=== PATIENT | female | born 1995 | race Caucasian/White ===

== ENCOUNTER 2018-12-30 18:25 | Outpatient (CLI) | payer OTHER ==
[~2018-12-30] VITALS: Ht 160 cm; Wt 84.8 kg
--- NOTE | 2018-12-30 18:35 | NUR ---
Arrived to unit ambulates self with c/o "left flank/lower back pain that radiates down left buttocks to left hamstring". pt reports haivng constant pain since 0800 this am when it started at work. Wt obtained and to room 315. urine sample obtained. To bed and oriented to call light and surroundings. plan of care reviewed with pt and s.o. at bedside.
--- NOTE | 2018-12-30 19:16 | NUR ---
Dr Andujar notified of pt arrival, gestation, c/o, hx, assessment, urine dipstick, fht dopplered 148. New orders received.
[2018-12-30] MEDS ORDERED: NITR-65 PO (19:23)
--- NOTE | 2018-12-30 19:35 | NUR ---
D/C instructions given & explained, including new Rx of Macrobid called to [facility] & questions answered, pt. verbalized understanding. Copy of D/C instructions to pt. Pt. left [facility] ambulatory escorted by SO, to home via private vehicle.
== END 2018-12-30 19:35 | disposition home or self-care (01) ==
LOC: LDRP 18:25 → WSo 18:25
PROVIDERS: ATTEND Family Medicine
DX: O99.89 Other specified diseases and conditions complicating pregnancy, childbirth and the puerperium (principal); R10.9 Unspecified abdominal pain; Z3A.23 23 weeks gestation of pregnancy
CPT/HCPCS: 99213

== ENCOUNTER → 2019-01-14 | Outpatient (CLI) | payer OTHER ==
[~2019-01-14] MED LIST: NITR-65 PO
--- NOTE | 2019-01-14 16:56 | Diagnostic Imaging Report ---
PROCEDURE: MR imaging of the brain without contrast. TECHNIQUE: Multiplanar, multisequence MR imaging of the brain was performed without contrast. INDICATION: Headaches. History of cavernous hemangioma. 24 week gestation. COMPARISON: None available. FINDINGS: 1.0 x 1.0 cm T1 and T2 hyperintense mass in the left postcentral gyrus demonstrating hemosiderin staining with no associated adjacent vasogenic edema. There is a second 0.4 x 0.4 cm T1 and T2 hyperintense lesion with a larger degree of hemosiderin staining in the inferior left frontal lobe adjacent to the frontal horn of the left lateral ventricle. This lesion also has no associated vasogenic edema. There are two punctate foci of hemosiderin deposition in the right frontal lobe. Single punctate focus of hemosiderin staining in the left parietal lobe. Normal morphology of the major midline structures, sella, posterior fossa and cerebellar pontine angle. No hydrocephalus or extra-axial fluid collections. Normal intracranial flow voids. The orbits are unremarkable. The paranasal sinuses and mastoids are clear. Normal bone marrow signal. IMPRESSION: Multiple intracranial lesions consistent with cavernous hemangiomas. The largest of these is in the left postcentral gyrus and measures up to 1.0 cm. No MRI findings to suggest recent hemorrhage. No vasogenic edema. No acute intracranial MRI findings. Dictated by: Dictated on workstation # [id number]
== END ==
LOC: RAD 15:33
PROVIDERS: ATTEND Family Medicine
DX: D18.02 Hemangioma of intracranial structures (principal); G93.89 Other specified disorders of brain
CPT/HCPCS: 70551

== ENCOUNTER 2019-01-27 18:23 | Emergency (ER) | payer OTHER ==
[~2019-01-27] VITALS: Ht 152.4 cm; Wt 81.6 kg
--- NOTE | 2019-01-27 20:01 | ED Integumentary General ---
General Chief Complaint: Bite-Animal/Human/Insect Stated Complaint: RT HAND ANIMAL BITE Nursing Triage Note: Patient c/o redness and swelling on her left hand from a cat bite. Patient reports that she was bite by the cat at the [facility] yesterday around 9am. She thought it would get better but the swelling and redness became worse. She presented to urgent care and was sent to the ED for further evaluation. Source: patient History of Present Illness Date Seen by Provider: Jan 27, 2019 Time Seen by Provider: 20:00 Initial Comments 23 yo female presenting with complaints of a cat bite to her hand that happened yesterday morning at 9 AM. She was helping at the [facility] and got bitten when they were trying to spay the cat. They are able to monitor the cat. She has pain and redness with swelling in the finger at the site of the bite and it is near her hemangioma on her hand. She is 27 weeks . She has not had any complications with her . She does have a hemangioma in her brain and is scheduled to see a neurologist about that. She has had no fever or chills. She h as no drainage from the wound. She does have some redness and swelling at the site of the bites. She has decreased movement of the ring finger where she has the bites. Allergies and Home Medications Allergies Coded Allergies: No Known Drug Allergies (Unverified , 12/30/18) Home Medications Amoxicillin/Potassium Clav 1 Each Tablet, 1 EACH PO BID Prescribed by: ESTHER GILLESPIE on 01/27/192015 Nitrofurantoin Monohyd/M-Cryst 100 Mg Capsule, 1 TAB PO BID Prescribed by: ABBY SCHILLING on 12/30/181922 Patient Home Medication List Home Medication List Reviewed: Yes Review of Systems Review of Systems Constitutional: No chills, No fever EENTM: no symptoms reported Respiratory: no symptoms reported Cardiovascular: no symptoms reported Gastrointestinal: no symptoms reported Genitourinary: no symptoms reported Musculoskeletal: see HPI Skin: see HPI Past Slhlfjk-Fqusts-Refadk Hx Past Med/Social Hx: Reviewed Nursing Past Med/Soc Hx Patient Social History Alcohol Use: Denies Use Recreational Drug Use: No Smoking Status: Never a Smoker 2nd Hand Smoke Exposure: No Recent Foreign Travel: No Contact w/Someone Who Travel: No Recent Infectious Disease Expo: No Recent Hopitalizations: No Physical Abuse: No Sexual Abuse: No Mistreated: No Fear: No Seasonal Allergies Seasonal Allergies: No Past Medical History Surgeries: Yes (Right hand surgery, left ankle surgery) Orthopedic Respiratory: No Cardiac: No Neurological: Yes (Hemangioma on brain) : Yes (27 weeks ) Hx : 1 Genitourinary: No Gastrointestinal: No Musculoskeletal: No Endocrine: No HEENT: No Cancer: No Psychosocial: No Blood Disorders: No Physical Exam Vital Signs Vital Signs - First Documented 01/27/19 18:35 Temp 98.5 Pulse 89 Resp 16 B/P (MAP) 118/71 (87) Pulse Ox 100 O2 Delivery Room Air Capillary Refill : Less Than 3 Seconds General Appearance: WD/WN, no apparent distress HEENT: normal ENT inspection, pharynx normal Neck: non-tender, full range of motion, supple, normal inspection Cardiovascular: normal peripheral pulses, regular rate, rhythm Extremities: normal capillary refill, swelling (with erythema at site of the bites with tenderness on the ring finger. She does have a hemangioma just next to the site of bites) Neurologic/Psychiatric: mathematical scientist II-XII nml as tested, no motor/sensory deficits, alert, normal mood/affect, oriented x 3 Skin: warm/dry, other (multiple scratches on her arms and hands as well as redness with induration, swelling and tenderness to left ring finger at site of bites, next to a hemangioma on the hand. No streaking from site of cat bite. no drainage. ) Progress/Results/Core Measures Results/Orders My Orders Orders - ESTHER GILLESPIE MD Ceftriaxone For Im Use (Rocephin For Im (01/27/19 20:08) Amoxicillin/Clavulanate Tablet (Augmenti (01/27/19 20:08) Lidocaine 1% Inj 20 Ml (Xylocaine 1% Inj (01/27/19 20:08) Vital Signs/I&O 01/27/19 01/27/19 18:35 20:25 Temp 98.5 98.5 Pulse 89 89 Resp 16 16 B/P (MAP) 118/71 (87) 118/71 (87) Pulse Ox 100 100 O2 Delivery Room Air Blood Pressure Mean: 87 Progress Progress Note : Progress Note With the cat bite already looking like it has some infection will give Rocephin shot tonight. Start her on Augmentin for the Bite. Counseled to follow up with clinic and take antibiotics as scheduled. Counseled on follow-up and return precautions. Departure Impression Primary Impression: Cat bite of multiple sites of left hand and fingers with infection Qualified Codes: S61.452A - Open bite of left hand, initial encounter; S61.259A - Open bite of unspecified finger without damage to nail, initial encounter; L08.9 - Local infection of the skin and subcutaneous tissue, unspecified; W55.01XA - Bitten by cat, initial encounter Additional Impression: Incidental confirmed Disposition: HOME, SELF-CARE Condition: Stable Departure-Patient Inst. Decision time for Depature: 20:13 Referrals: ONOFRE SAN MD (PCP/Family) Primary Care Physician Patient Instructions: Animal Bites (DC), CAT BITE, Cellulitis (Skin Infection), Adult (DC) Add. Discharge Instructions: Take antibiotics until gone. Follow-up with the clinic for monitoring and make sure that the infection is improving with the antibiotics. If you are seeing redness and swelling that is streaking up your hand and arm or running fevers over 101 Fahrenheit then you will need to be seen at a hospital where you can be admitted for IV antibiotics as the infection was spreading and not responding to just the oral antibiotics. All discharge instructions reviewed with patient and/or family. Voiced understanding. Scripts Amoxicillin/Potassium Clav (Augmentin 875-125 Tablet) 1 Each Tablet 1 EACH PO BID for cat bite for 10 Days, #20 TAB 0 Refills Prov: ESTHER GILLESPIE MD 01/27/19 ESTHER GILLESPIE MD Jan 27, 2019 20:01
[2019-01-27] MEDS ORDERED: AUGMENTIN 875 MG TAB (AMOXICILLIN/CLAVULANATE) PO STA (20:08)
[2019-01-27] MEDS ORDERED: LIDOCAINE 1% INJ 20 ML 20 ML VIAL INJ STA (20:08)
[2019-01-27] MEDS ORDERED: cefTRIAXone 1,000 MG/2.86 ml vial (IM ONLY) IM STA (20:08)
[2019-01-27] MEDS ORDERED: AMOX-358 PO (20:16)
[2019-01-27 20:25] VITALS: BP 118/71
== END 2019-01-27 20:24 | disposition home or self-care (01) ==
LOC: EDUNIT# 18:23 → ER FS 18:25
DX: O9A.212 Injury, poisoning and certain other consequences of external causes complicating pregnancy, second trimester (principal); S61.452A Open bite of left hand, initial encounter; S61.255A Open bite of left ring finger without damage to nail, initial encounter; L08.9 Local infection of the skin and subcutaneous tissue, unspecified; Z3A.27 27 weeks gestation of pregnancy
CPT/HCPCS: 96372; 99284

== ENCOUNTER 2019-04-10 21:42 | Outpatient (CLI) | payer OTHER ==
[~2019-04-10] VITALS: Ht 157 cm; Wt 93.3 kg
[~2019-04-10 21:42] MED LIST changes: +AMOX-358 PO
--- NOTE | 2019-04-10 21:50 | NUR ---
ZEKE NEAL presented to unit via AMBULATORY from ED, accompanied by S/O, with c/o CONTRACTIONS 36.5WEEKS GEST. ZEKE NEAL weighed, gowned, voided, and to bed. EFHM and TOCO applied, VS taken. ZEKE NEAL oriented to bed controls, call light, TV, heat, and A/C controls.
[2019-04-10 22:03] LABS: BILIRUBIN,URINE NEGATIVE (NEGATIVE); CLARITY,URINE CLOUDY; GLUCOSE, URINE (UA) NEGATIVE (NEGATIVE); KETONES,URINE NEGATIVE (NEGATIVE); LEUKOCYTE ESTERASE ,URINE NEGATIVE (NEGATIVE); NITRITE,URINE NEGATIVE (NEGATIVE); PH,URINE 5.5 (5-9); PROTEIN,URINE NEGATIVE (NEGATIVE)
[2019-04-10 22:08] VITALS: BP 135/64
[2019-04-10 22:08] LABS: COLOR,URINE YELLOW
[2019-04-10 22:09] LABS: BACTERIA,URINE MODERATE /HPF
--- NOTE | 2019-04-10 22:50 | NUR ---
notified of pt's arrival and complaint, tracing and u/a results reported. new orders received.
[2019-04-10] MEDS ORDERED: cefTRIAXone 1,000 MG/2.86 ml vial (IM ONLY) ONE (22:59)
[2019-04-10] MEDS ORDERED: LIDOCAINE 1% INJ 20 ML 20 ML VIAL ONE (22:59)
[2019-04-10] MEDS ORDERED: LIDOCAINE 1% INJ 20 ML 20 ML VIAL INJ ONE (23:00)
--- NOTE | 2019-04-10 23:21 | NUR ---
Discharge instructions verbalized with pt. pt dc'd home with labor precautions. Will follow up in clinic
[2019-04-11] MEDS ORDERED: cefTRIAXone 1,000 MG/2.86 ml vial (IM ONLY) IM SCH (09:00)
--- NOTE | 2019-04-12 08:40 | Physician Query-Final Dx ---
PADMINI OLIVEIRA 04/12/19 0840: Clinic Account Progress/Dx Physician Query: Please give diagnosis Please include # weeks gestation Date of Service Apr 10, 2019 at 21:42 MEME HILL MD 04/14/19 0818: Clinic Account Progress/Dx DIAGNOSIS: Diagnosis 1. IUP at 36 weeks 2. Uterine irritability, non-labor PADMINI OLIVEIRA Apr 12, 2019 08:40 MEME SINGH MD Apr 14, 2019 08:18 POS
== END 2019-04-10 23:21 | disposition home or self-care (01) ==
LOC: WSo 21:42 → LDRP 21:42 → WSo 23:21
PROVIDERS: ATTEND Family Medicine
DX: O62.9 Abnormality of forces of labor, unspecified (principal); Z3A.37 37 weeks gestation of pregnancy
CPT/HCPCS: 81000; 87088; 96372; 99213

== ENCOUNTER 2019-04-25 20:39 | Outpatient (CLI) | payer OTHER, MEDICAID ==
[~2019-04-25] VITALS: Ht 152.4 cm; Wt 93.7 kg
--- NOTE | 2019-04-25 20:45 | NUR ---
ZEKE NEAL presented to unit via ambulation from ED, accompanied by SO, with c/o CONTRACTIONS. ZEKE NEAL weighed, gowned, voided, and to bed. EFHM and TOCO applied, VS taken. ZEKE NEAL oriented to bed controls, call light, TV, heat, and A/C controls.
[2019-04-25 21:02] VITALS: BP 132/78
--- NOTE | 2019-04-25 22:10 | NUR ---
D/C instructions given & explained per Nghia Gant, RN, pt. verbalized understanding & signed @ [id number], copy of D/C instructions to pt. Pt. left [facility] ambulatory escorted by SO, to home via private vehicle.
--- NOTE | 2019-04-26 08:06 | Physician Query-Final Dx ---
Clinic Account Progress/Dx Physician Query: Please give diagnosis Please include # weeks gestation Date of Service Apr 25, 2019 at 20:39 PADMINI OLIVEIRA Apr 26, 2019 08:06 POS
== END 2019-04-25 22:10 | disposition home or self-care (01) ==
LOC: WSo 20:39 → LDRP 20:40 → WSo 22:10
PROVIDERS: ATTEND Family Medicine
DX: O62.9 Abnormality of forces of labor, unspecified (principal); Z3A.38 38 weeks gestation of pregnancy

== ENCOUNTER 2019-04-26 17:37 | Inpatient (IN) | payer OTHER, MEDICAID ==
[2019-04-26] VITALS (15 sets, daily range): BP systolic 119–150; BP diastolic 58–92
[~2019-04-26] VITALS: Ht 152.4 cm; Wt 92.6 kg
--- NOTE | 2019-04-26 17:45 | NUR ---
ZEKE NEAL presented to unit via ambulatory from ED, accompanied by Robb , with c/o contractions and here for scheduled INDUCTION. ZEKE NEAL weighed, gowned, voided, and to bed. EFHM and TOCO applied, VS taken. ZEKE NEAL oriented to bed controls, call light, TV, heat, and A/C controls.
[2019-04-26] MEDS ORDERED: MINERAL OIL CONCENTRATE 99.9% 15 ML UDC TOP PRN (18:15)
[2019-04-26] MEDS ORDERED: D5 LR IV SOLUTION 1,000 ML IV ONE (18:18)
[2019-04-26] MEDS: D5 LR IV SOLUTION 1,000 ML IV SCH (18:34)
[2019-04-26 18:49] LABS: BASOPHILS % (AUTO) 0 % (0-10); EOSINOPHILS # (AUTO) 0.1 10^3/uL (0.0-0.3); EOSINOPHILS % (AUTO) 1 % (0-10); HEMATOCRIT 34 % (35-52); HEMOGLOBIN 11.2 G/DL (11.5-16.0); LYMPHOCYTES # (AUTO) 1.9 X 10^3 (1.0-4.0); LYMPHOCYTES % (AUTO) 10 % (12-44); MEAN CORPUSCULAR HEMOGLOBIN 28 PG (25-34); MEAN CORPUSCULAR HGB CONC 33 G/DL (32-36); MEAN CORPUSCULAR VOLUME 86 FL (80-99); MEAN PLATELET VOLUME 7.8 FL (7.4-10.4); MONOCYTES # (AUTO) 1.1 X 10^3 (0.0-1.0); MONOCYTES % (AUTO) 6 % (0-12); NEUTROPHILS # (AUTO) 15.6 X 10^3 (1.8-7.8); NEUTROPHILS % (AUTO) 84 % (42-75); PLATELET COUNT 262 10^3/uL (130-400); RED CELL DISTRIBUTION WIDTH 13.6 % (10.0-14.5); WHITE BLOOD COUNT 18.7 10^3/uL (4.3-11.0)
--- NOTE | 2019-04-26 18:51 | NUR ---
Dr Ellis called from this nurse to discuss pt admission and plan of care for induction. Informed physician pt was 2cms and thick. Contractions q 4 minutes apart since noon. Rates contractions an 8. Physician opted for no Cytotec at this time and for Pitocin induction at 0500.
[2019-04-26 19:29] LABS: BAND NEUTROPHILS 3 %; LYMPHOCYTES % (MANUAL) 8 %; MONOCYTES % (MANUAL) 7 %; NEUTROPHILS % (MANUAL) 82 %; RBC MORPH N
[2019-04-26] MEDS ORDERED: BUPIVACAINE 0.25% 30 ML (SENSORCAINE) VIAL ONE ×2 (21:15→22:08)
[2019-04-26] MEDS ORDERED: fentaNYL INJECTION 100 MCG/2 ML AMP ONE ×2 (21:15→22:09)
[2019-04-26] MEDS ORDERED: LIDOCAINE PF 2% 5 ML (XYLOCAINE) VIAL ONE ×2 (21:15→22:08)
[2019-04-26] MEDS ORDERED: SUFENTA 0.6MCG/ML BUPIVA 0.125 100 ML ONE (21:29)
[2019-04-26] MEDS ORDERED: CATHETER FLUSH 10 ML SYR IV SCH (22:00)
[2019-04-26] MEDS ORDERED: LACTATED RINGERS 1,000 ML IV SCH (22:07)
[2019-04-26] MEDS ORDERED: ONDANSETRON 4 MG/2 ML (SDV) Z0FRAN IV PRN (22:15)
[2019-04-26] MEDS ORDERED: NALOXONE 0.4 MG/ML 1 ML (NARCAN) VIAL IV PRN (22:15)
[2019-04-26] MEDS ORDERED: diphenhydrAMINE 50 MG/ML INJ (BENADRYL) IV PRN (22:15)
[2019-04-26] MEDS: EPIDURAL (SUFENTA 0.6MCG/ML BUPIVA 0.125%) 100 ML BAG EPI PRN (22:32)
[2019-04-27] VITALS (98 sets, daily range): BP systolic 87–193; BP diastolic 46–169
[2019-04-27] MEDS: D5 LR IV SOLUTION 1,000 ML IV SCH ×2 (02:03→09:26)
[2019-04-27] MEDS ORDERED: OXYTOCIN/NORMAL SALINE 500 ML IV SCH ×2 (05:00→15:28)
[2019-04-27] MEDS: EPIDURAL (SUFENTA 0.6MCG/ML BUPIVA 0.125%) 100 ML BAG EPI PRN ×2 (06:06→13:12)
[2019-04-27] MEDS ORDERED: LIDOCAINE 1% INJ 20 ML 20 ML VIAL ONE (14:20)
--- NOTE | 2019-04-27 15:26 | History & Physical-OB ---
OB - Chief Complaint & HPI Date/Time Date of Admission: Date of Admission: Apr 26, 2019 at 17:37 Date seen by a Provider: Apr 27, 2019 Time Seen by a Provider: 14:00 Chief Complaint/History OB-Reason for Admission/Chief: Onset of Labor Hx : 1 Hx Para: 0 Gestational Age in Weeks: 39 Gestational Age in Days: 4 Indication for induction: maternal discomfort Admission Nurse Assessment Rev: Yes Allergies and Home Medications Allergies Coded Allergies: No Known Drug Allergies (Unverified , 12/30/18) Home Medications No Active Prescriptions or Reported Meds Patient Home Medication List Home Medication List Reviewed: Yes OB - History Hx of Present Ultrasounds: Normal mid trimester US Obstetrical Complications: None 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) Patient Past Medical History previously healthy Social History/Family History Recent Infectious Disease Expo: Yes Alcohol Use: Denies Use Recreational Drug Use: No 2nd Hand Smoke Exposure: No Immunizations Date of Influenza Vaccine: Mar 09, 2019 OB - Admission Exam Physical Exam Vitals: Vital Signs 04/27/19 04/27/19 00:08 12:26 Temp 37.1 Pulse 103 Resp 18 B/P (MAP) 130/65 (86) Pulse Ox 95 O2 Delivery Room Air HEENT: NCAT Heart: Rhythm Normal Lungs: Clear Abdomen: Gravid Extremities: Normal Reflexes: Normal Cervical Dilatation: 10cm Effacement: 100% Station: -1 Membranes: Ruptured Amniotic Fluid: Clear Heart Rate: 140's Accelerations: Accelerations Present Decelerations: No Decelerations Short Term Variability: Present Leather Lacer Variability: Average (6-25) Contractions on Admission: < 5 Minutes Apart Labs Laboratory Tests Test 04/26/19 18:30 Range/Units White Blood Count 18.7 H 4.3-11.0 10^3/uL Red Blood Count 4.02 L 4.35-5.85 10^6/uL Hemoglobin 11.2 L 11.5-16.0 G/DL Hematocrit 34 L 35-52 % Mean Corpuscular Volume 86 80-99 FL Mean Corpuscular Hemoglobin 28 25-34 PG Mean Corpuscular Hemoglobin Concent 33 32-36 G/DL Red Cell Distribution Width 13.6 10.0-14.5 % Platelet Count 262 130-400 10^3/uL Mean Platelet Volume 7.8 7.4-10.4 FL Neutrophils (%) (Auto) 84 H 42-75 % Lymphocytes (%) (Auto) 10 L 12-44 % Monocytes (%) (Auto) 6 0-12 % Eosinophils (%) (Auto) 1 0-10 % Basophils (%) (Auto) 0 0-10 % Neutrophils # (Auto) 15.6 H 1.8-7.8 X 10^3 Lymphocytes # (Auto) 1.9 1.0-4.0 X 10^3 Monocytes # (Auto) 1.1 H 0.0-1.0 X 10^3 Eosinophils # (Auto) 0.1 0.0-0.3 10^3/uL Basophils # (Auto) 0.0 0.0-0.1 10^3/uL Neutrophils % (Manual) 82 % Lymphocytes % (Manual) 8 % Monocytes % (Manual) 7 % Band Neutrophils 3 % Blood Morphology Comment N OB - Assessment/Plan/Diagnosis Assessment Assessment: active labor Admission Dx Inpatient labor Admission Status: Inpatient Order (span 2 midnights) Reason for Inpatient Admission: Labor at 39 4/7 wga Plan Plan: Expectant Management Induction Method: per Pitocin Protocol ONFORE SAN MD Apr 27, 2019 15:26 POS
--- NOTE | 2019-04-27 15:28 | OB Labor & Delivery Record ---
Vag Delivery Note Vag Delivery Note Date of Delivery: 04/27/19 Preoperative Diagnosis: Serena Rogers is a (24 /Para 1 / 0, Gestational Age (wks)39with [4 days] Postoperative Diagnosis: Same Surgeon: ONOFRE SAN Global Director Air And Climate Change: [none] Anesthesia: [epidural] Delivery Type: [] Findings: [male] Viable [male] , apgars [8/9], weight [7 pounds 6 ounces] Lacerations: Intact placenta with 3 vessel cord. No nuchal cord, body cord or shoulder dystocia Estimated Blood Loss: [350] ml Complications: None Condition: Stable Description of Procedure: The patient is a 24 year old female who presented [in early labor]. She was admitted and informed consent was obtained. Her labor course was remarkable for [augmentation of labor] She progressed to complete dilatation and began to push. She was then set up for delivery. The infant's head was delivered atraumatically in the [OA] position. The shoulders and remainder of the 's body were then delivered without difficulty. Upon delivery, the head was held below the level of the perineum and the mouth and nares were bulb suctioned. The cord was doubly clamped after 60 seconds on maternal abdomen. An intact placenta with 3-vessel cord delivered via Susan and there was found to be minimal bleeding.~ Vigorous fundal massage was performed and the fundus was found to be firm. IV oxytocin was given. Examination of the vagina and perineum revealed [no] lacerations. Following the repair, sponge, instrument and needle counts were correct. Mom and baby were both in stable condition in the labor suite. Vitals - Labs Vital Signs - I&O Vital Signs Date Time Temp Pulse Resp B/P (MAP) Pulse Ox O2 Delivery O2 Flow Rate FiO2 04/27/19 12:26 37.1 103 18 130/65 (86) Room Air 04/27/19 12:11 102 18 142/60 (87) Room Air 04/27/19 11:56 113 18 131/67 (88) Room Air 04/27/19 11:41 111 18 130/64 (86) Room Air 04/27/19 11:26 113 18 126/61 (82) Room Air 04/27/19 10:40 36.8 97 18 134/64 (87) Room Air 04/27/19 10:37 92 18 135/62 (86) Room Air 04/27/19 10:34 93 18 134/60 (84) Room Air 04/27/19 10:31 104 18 133/63 (86) Room Air 04/27/19 10:28 90 18 127/62 (83) Room Air 04/27/19 10:18 92 18 128/60 (82) Room Air 04/27/19 10:15 89 18 131/62 (85) Room Air 04/27/19 10:12 87 18 125/58 (80) Room Air 04/27/19 10:09 99 18 123/57 (79) Room Air 04/27/19 10:06 90 18 110/56 (74) Room Air 04/27/19 10:03 90 18 122/59 (80) Room Air 04/27/19 10:00 91 18 120/58 (78) Room Air 04/27/19 09:56 84 18 124/57 (79) Room Air 04/27/19 09:53 93 18 130/61 (84) Room Air 04/27/19 09:50 88 18 130/62 (84) Room Air 04/27/19 09:47 96 18 123/59 (80) Room Air 04/27/19 09:37 88 18 126/61 (82) Room Air 04/27/19 09:22 78 18 122/55 (77) Room Air 04/27/19 09:08 80 18 132/61 (84) Room Air 04/27/19 08:58 36.8 04/27/19 08:54 96 18 130/61 (84) Room Air 04/27/19 08:39 89 18 105/54 (71) Room Air 04/27/19 08:21 80 18 104/49 (67) Room Air 04/27/19 08:17 95 18 109/51 (70) Room Air 04/27/19 08:14 80 18 103/46 (65) Room Air 04/27/19 08:12 83 18 104/51 (68) Room Air 04/27/19 08:09 95 18 105/51 (69) Room Air 04/27/19 08:06 79 18 106/49 (68) Room Air 04/27/19 08:03 91 18 108/52 (70) Room Air 04/27/19 08:00 100 18 112/53 (72) Room Air 04/27/19 07:58 80 18 107/50 (69) Room Air 04/27/19 07:54 92 18 113/51 (71) Room Air 04/27/19 07:51 96 18 87/50 (62) Room Air 04/27/19 07:48 100 18 130/65 (86) Room Air 04/27/19 07:45 107 18 131/69 (89) Room Air 04/27/19 07:42 96 18 122/63 (82) Room Air 04/27/19 07:39 100 18 123/59 (80) Room Air 04/27/19 07:36 96 18 129/58 (81) Room Air 04/27/19 07:33 94 18 132/62 (85) Room Air 04/27/19 07:30 37.2 99 18 129/60 (83) Room Air 04/27/19 07:22 103 18 128/60 (82) Room Air 04/27/19 07:08 96 18 128/58 (81) Room Air 04/27/19 06:55 100 18 133/78 (96) Room Air 04/27/19 06:40 97 18 132/79 (96) Room Air 04/27/19 06:25 96 18 127/64 (85) Room Air 04/27/19 06:10 36.5 80 18 121/56 (77) Room Air 04/27/19 05:55 76 18 113/57 (75) Room Air 04/27/19 05:37 62 18 111/57 (75) Room Air 04/27/19 05:22 62 18 111/55 (73) Room Air 04/27/19 05:07 75 18 114/55 (74) Room Air 04/27/19 04:52 85 18 123/59 (80) Room Air 04/27/19 04:38 36.6 63 18 111/51 (71) Room Air 04/27/19 04:22 77 18 106/51 (69) Room Air 04/27/19 04:07 72 18 101/52 (68) Room Air 04/27/19 03:53 78 18 117/56 (76) Room Air 04/27/19 03:37 80 18 107/58 (74) Room Air 04/27/19 03:22 78 18 120/58 (78) Room Air 04/27/19 03:07 88 18 120/60 (80) Room Air 04/27/19 02:52 36.2 96 18 113/56 (75) Room Air 04/27/19 02:38 85 18 117/59 (78) Room Air 04/27/19 02:22 103 18 109/58 (75) Room Air 04/27/19 02:08 92 18 113/58 (76) Room Air 04/27/19 01:52 65 18 106/53 (70) Room Air 04/27/19 01:38 55 18 110/52 (71) Room Air 04/27/19 01:22 94 18 114/55 (74) Room Air 04/27/19 01:08 57 18 110/54 (72) Room Air 04/27/19 00:52 96 18 110/57 (74) Room Air 04/27/19 00:38 78 18 113/59 (77) Room Air 04/27/19 00:08 87 18 120/57 (78) 95 Room Air 04/27/19 00:00 36.1 97 18 120/57 (78) 95 Room Air 04/26/19 23:38 96 18 119/58 (78) 95 Room Air 04/26/19 23:19 91 18 127/59 (81) 95 Room Air 04/26/19 23:12 99 16 137/64 (88) 96 Room Air 04/26/19 22:58 89 18 95 04/26/19 22:45 96 16 135/63 (87) 90 Room Air 04/26/19 22:40 106 16 130/59 (82) 96 Room Air 04/26/19 22:36 106 16 127/58 (81) 96 Room Air 04/26/19 22:33 104 16 121/58 (79) 96 Room Air 04/26/19 22:30 103 16 135/73 (93) 97 Room Air 04/26/19 22:25 95 16 141/92 (108) 97 Room Air 04/26/19 22:22 100 16 150/67 (94) 97 Room Air 04/26/19 22:19 100 16 142/70 (94) 98 Room Air 04/26/19 22:16 100 16 143/74 (97) 98 Room Air 04/26/19 22:13 36.7 105 18 143/75 (97) 99 Room Air 04/26/19 21:05 97 16 130/75 (93) 96 Room Air 04/26/19 18:00 37.3 102 16 96 Room Air 04/26/19 18:00 37.3 104 16 130/74 (92) 96 Room Air I & O 04/27/19 07:00 Intake Total 2000 ml Balance 2000 ml Labs Laboratory Tests 04/26/19 18:30: White Blood Count 18.7H, Red Blood Count 4.02L, Hemoglobin 11.2L, Hematocrit 34L , Mean Corpuscular Volume 86, Mean Corpuscular Hemoglobin 28, Mean Corpuscular Hemoglobin Concent 33, Red Cell Distribution Width 13.6, Platelet Count 262, Shefali n Platelet Volume 7.8, Neutrophils (%) (Auto) 84H, Lymphocytes (%) (Auto) 10L, Monocytes (%) (Auto) 6, Eosinophils (%) (Auto) 1, Basophils (%) (Auto) 0, Neutrophils # (Auto) 15.6H, Lymphocytes # (Auto) 1.9, Monocytes # (Auto) 1.1H, Eosinophils # (Auto) 0.1, Basophils # (Auto) 0.0, Neutrophils % (Manual) 82, Lymphocytes % (Manual) 8, Monocytes % (Manual) 7, Band Neutrophils 3, Blood Morphology Comment N ONOFRE SAN MD Apr 27, 2019 15:28 POS
[2019-04-27] MEDS ORDERED: TETANUS,DIPTH,PERTUSS P/F (BOOSTRIX) 0.5 ML VIAL IM ONE (15:30)
[2019-04-27] MEDS ORDERED: WITCH HAZEL(TUCKS) 40 EA JAR TOP PRN (15:30)
[2019-04-27] MEDS ORDERED: MEASLES,MUMPS,RUBELLA 1 EA INJ SQ ONE (15:30)
[2019-04-27] MEDS ORDERED: BENZOCAINE/MENTHOL (DERMOPLAST) 56 ML CAN TP PRN (15:30)
[2019-04-27] MEDS: IBUPROFEN 600 MG (MOTRIN) TAB PO SCH ×2 (17:57→23:41)
[2019-04-27] MEDS: GENTAMICIN 0.3% OPHTH SOLN 5 ML OP SCH ×2 (17:57→20:00)
--- NOTE | 2019-04-27 18:11 | NUR ---
REFER TO LABOR FLOW SHEET.
--- NOTE | 2019-04-27 20:35 | NUR ---
Pt has room full of visitors, denies vs at this time. to reassess. Pt shows no ss distress, will cont to monitor.
[2019-04-27] MEDS ORDERED: CATHETER FLUSH 10 ML SYR IV SCH (22:00)
[2019-04-27] MEDS: DOCUSATE SODIUM 100 MG (COLACE) CAP PO SCH (23:41)
[2019-04-28 05:24] VITALS: BP 118/69
[2019-04-28] MEDS: IBUPROFEN 600 MG (MOTRIN) TAB PO SCH ×3 (05:25→18:53)
[2019-04-28] MEDS: GENTAMICIN 0.3% OPHTH SOLN 5 ML OP SCH ×3 (05:26→21:28)
[2019-04-28 06:57] LABS: BASOPHILS % (AUTO) 0 % (0-10); EOSINOPHILS # (AUTO) 0.2 10^3/uL (0.0-0.3); EOSINOPHILS % (AUTO) 1 % (0-10); HEMATOCRIT 28 % (35-52); LYMPHOCYTES # (AUTO) 2.2 X 10^3 (1.0-4.0); LYMPHOCYTES % (AUTO) 11 % (12-44); MEAN CORPUSCULAR HEMOGLOBIN 28 PG (25-34); MEAN CORPUSCULAR HGB CONC 33 G/DL (32-36); MEAN CORPUSCULAR VOLUME 87 FL (80-99); MEAN PLATELET VOLUME 7.8 FL (7.4-10.4); MONOCYTES # (AUTO) 1.4 X 10^3 (0.0-1.0); MONOCYTES % (AUTO) 7 % (0-12); NEUTROPHILS # (AUTO) 15.9 X 10^3 (1.8-7.8); NEUTROPHILS % (AUTO) 81 % (42-75); PLATELET COUNT 229 10^3/uL (130-400); RED CELL DISTRIBUTION WIDTH 13.7 % (10.0-14.5); WHITE BLOOD COUNT 19.7 10^3/uL (4.3-11.0)
--- NOTE | 2019-04-28 07:15 | NUR ---
PT AWARE TO USE EYE GTT Q2HR, PT ADMINISTERS BY SELF.
[2019-04-28 09:09] VITALS: BP 121/68
[2019-04-28] MEDS: ACETAMINOPHEN 500 MG TAB (TYLENOL) PO SCH ×2 (09:10→17:16)
[2019-04-28] MEDS: DOCUSATE SODIUM 100 MG (COLACE) CAP PO SCH ×2 (09:10→21:27)
--- NOTE | 2019-04-28 09:10 | NUR ---
PT SITTING UP ON THE SIDE OF THE BED. VS OBTAINED. MEDS GIVEN PO; SEE EMAR FOR FURTHER. INITIAL SHIFT ASSESSMENT COMPLETED; SEE INTERVENTION FOR FURTHER. BREAKFAST HAS BEEN DELIVERED TO BEDSIDE PER FAMILY. PT DENIES ANY NEEDS AT THIS TIME. S/O AT THE BEDSIDE. CALL LIGHT WITHIN REACH.
--- NOTE | 2019-04-28 10:05 | Progress Note ---
Subjective Subjective/Events-last exam Doing well. Bleeding slowed, pain controlled. Infant having intermittent tachypnea especially with breast feeding and being worked up for that. Objective Exam Last Set of Vital Signs Vital Signs Date Time Temp Pulse Resp B/P (MAP) Pulse Ox O2 Delivery O2 Flow Rate FiO2 04/28/19 09:09 36.5 79 18 121/68 (85) 97 Room Air Capillary Refill : Greater Than 3 Seconds I&O Intake and Output 04/28/19 00:00 Intake Total 3950 ml Balance 3950 ml Intake IV Total 3950 ml General: Alert, Oriented X3, Cooperative Psych/Mental Status: Mood NL Results/Procedures Lab Laboratory Tests 04/28/19 06:48: White Blood Count 19.7H, Red Blood Count 3.18L, Hemoglobin 9.0L, Hematocrit 28L, Mean Corpuscular Volume 87, Mean Corpuscular Hemoglobin 28, Mean Corpuscular Hemoglobin Concent 33, Red Cell Distribution Width 13.7, Platelet Count 229, Mean Platelet Volume 7.8, Neutrophils (%) (Auto) 81H, Lymphocytes (%) (Auto) 11L , Monocytes (%) (Auto) 7, Eosinophils (%) (Auto) 1, Basophils (%) (Auto) 0, Neutrophils # (Auto) 15.9H, Lymphocytes # (Auto) 2.2, Monocytes # (Auto) 1.4H, Eosinophils # (Auto) 0.2, Basophils # (Auto) 0.0 Assessment/Plan Assessment/Plan (1) Status post vaginal delivery Onset Date: ~ 04/27/2019 Assessment & Plan: Routine care. Clinical Quality Measures DVT/VTE Risk/Contraindication: Risk Factor Score Per Nursin RFS Level Per Nursing on Admit: 1=Low/No VTE PPX CEFERINO BETH DO Apr 28, 2019 10:05 POS
[2019-04-28 12:12] VITALS: BP 113/64
--- NOTE | 2019-04-28 12:15 | NUR ---
Mahad ROWLAND, RN, AT PT'S BEDSIDE SETTING UP A BREAST PUMP. VS OBTAINED. ROUTINE MOTRIN GIVEN PO; SEE EMAR FOR FURTHER. PT DENIES ANY NEEDS AT THIS TIME.
--- NOTE | 2019-04-28 15:27 | NUR ---
PT AMBULATING BACK TO ROOM FROM SEEING INFANT IN THE NURSERY.
--- NOTE | 2019-04-28 16:10 | NUR ---
PT AMBULATES OFF UNIT WITH S/O AND FAMILY.
[2019-04-28 17:15] VITALS: BP 115/70
--- NOTE | 2019-04-28 18:53 | NUR ---
PT PUMPING. ROUTINE MOTRIN GIVEN PO; SEE EMAR FOR FURTHER.
--- NOTE | 2019-04-28 18:57 | NUR ---
PT STATES THAT SHE HAS BEEN CONTINUING TO TAKE HER EYES DROPS DIRECTED.
[2019-04-29] VITALS: BP 124/60
[2019-04-29] MEDS: ACETAMINOPHEN 500 MG TAB (TYLENOL) PO SCH ×3 (00:21→14:04)
[2019-04-29] MEDS: IBUPROFEN 600 MG (MOTRIN) TAB PO SCH ×3 (00:21→13:28)
[2019-04-29] MEDS: GENTAMICIN 0.3% OPHTH SOLN 5 ML OP SCH ×5 (00:23→14:06)
[2019-04-29 06:00] VITALS: BP 105/58
[2019-04-29 08:07] VITALS: BP 125/65
[2019-04-29] MEDS: DOCUSATE SODIUM 100 MG (COLACE) CAP PO SCH (08:17)
--- NOTE | 2019-04-29 09:26 | Short Stay Summary ---
Discharge Summary Hospital Course Final Diagnosis: see hospital course Hospital Course Date of Admission: Apr 26, 2019 at 17:37 Admission Diagnosis : 1. G1 with REED at 39w4d Family Physician/Provider: Kavita Ellis MD Date of Discharge: 04/29/19 Discharge Diagnosis: 1. s/p Hospital Course: Routine care Labs and Pending Lab Test: Home Meds Active No Active Prescriptions or Reported Medications Assessment/Pt Instructions follow up with Dr. Ellis in 6wk Discharge Instructions Discharge Diet: No Restrictions Discharge Physical Examination General Appearance: Alert, Oriented X3, Cooperative Psych/Mental Status: Mood NL Allergies: Coded Allergies: No Known Drug Allergies (Unverified , 12/30/18) Discharge Summary Date of Admission Apr 26, 2019 at 17:37 Date of Discharge Clinical Quality Measures DVT/VTE Risk/Contraindication: Risk Factor Score Per Nursin RFS Level Per Nursing on Admit: 1=Low/No VTE PPX CEFERINO BETH DO Apr 29, 2019 09:25 POS
[2019-04-29 13:31] VITALS: BP 131/73
--- NOTE | 2019-04-29 16:15 | NUR ---
ZEKE NEAL demonstrates understanding of discharge instructions and accurately returns instructions upon questioning. Copy of Post-Discharge Instructions and Medication Discharge Instructions given to pt. ZEKE NEAL is able to manage continuing needs after discharge. Patients belongings returned to . Skin dry and intact; no breakdown noted. Patient discharged to room 3311-1 to [facility] in NICU.
--- OUTSIDE RECORDS SUMMARY | 2019-05-21 21:11 | XMS REPORT | Continuity of Care Document ---
Author Organization Unknown Address Unknown Phone Unavailable Allergies Active Description Code Type Severity Reaction Onset Reported/Identified Relationship to Patient Clinical Status Yes No Known Drug Allergies [id number] Drug Allergy Unknown N/A 12/30/2018 Medications There is no data. Problems Date Dx Coded Attending Type Code Diagnosis Diagnosed By 12/30/2018 DEVYN MUNOZ MD, Ot O99.8 9 OTH DISEASES AND CONDITIONS COMPL PREG/C 12/30/2018 DEVYN MUNOZ MD, Ot R10.9 UNSPECIFIED ABDOMINAL PAIN 12/30/2018 DEVYN MUNOZ MD, Ot Z3A.2 3 23 WEEKS GESTATION OF 01/27/2019 ESTHER GILLESPEI MD, Ot L08.9 LOCAL INFECTION OF THE SKIN AND SUBCUTAN 01/27/2019 ESTHER GILLESPIE MD, Ot O9A.2 12 INJ/POISN/OTH CONSEQ OF EXTRN CAUSES COM 01/27/2019 ESTHER GILLESPIE MD, Ot S61.255A OPEN BITE OF LEFT RING FINGER W/O DAMAGE 01/27/2019 ESTHER GILLESPIE MD, Ot S61.452A OPEN BITE OF LEFT HAND, INITIAL ENCOUNTE 01/27/2019 ESTHER GILLESPIE MD, Ot Z3A.2 7 27 WEEKS GESTATION OF 02/02/2019 ESTHER GILLESPIE MD, Ot L08.9 LOCAL INFECTION OF THE SKIN AND SUBCUTAN 02/02/2019 ESTHER GILLESPIE MD, Ot O9A.2 12 INJ/POISN/OTH CONSEQ OF EXTRN CAUSES COM 02/02/2019 ESTHER GILLESPIE MD, Ot S61.255A OPEN BITE OF LEFT RING FINGER W/O DAMAGE 02/02/2019 ESTHER GILLESPIE MD, Ot S61.452A OPEN BITE OF LEFT HAND, INITIAL ENCOUNTE 02/02/2019 ESTHER GILLESPIE MD, Ot Z3A.2 7 27 WEEKS GESTATION OF 02/04/2019 ESTHER GILLESPIE MD, Ot L08.9 LOCAL INFECTION OF THE SKIN AND SUBCUTAN 02/04/2019 ESTHER GILLESPIE MD, Ot O9A.2 12 INJ/POISN/OTH CONSEQ OF EXTRN CAUSES COM 02/04/2019 ESTHER GILLESPIE MD, Ot S61.255A OPEN BITE OF LEFT RING FINGER W/O DAMAGE 02/04/2019 ESTHER GILLESPIE MD, Ot S61.452A OPEN BITE OF LEFT HAND, INITIAL ENCOUNTE 02/04/2019 ESTHER GILLESPIE MD, Ot Z3A.2 7 27 WEEKS GESTATION OF 02/10/2019 ONOFRE SAN MD, Ot 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 9 ABNORMALITY OF FORCES OF LABOR, UNSPECIF 04/10/2019 MEME HILL MD, Ot Z3A. 37 37 WEEKS GESTATION OF 04/13/2019 MEME HILL MD, Ot O62. 9 ABNORMALITY OF FORCES OF LABOR, UNSPECIF 04/13/2019 MEME HILL MD, Ot Z3A. 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 04/25/2019 ONOFRE SAN MD, Ot G93.89 OTHER SPECIFIED DISORDERS OF BRAIN 04/25/2019 MAGGIE CHRISTIANSON MD Ot O62 .9 ABNORMALITY OF FORCES OF LABOR, UNSPECIF 04/25/2019 MAGGIE CHRISTIANSON MD Ot Z3A.38 38 WEEKS GESTATION OF 04/27/2019 MAGGIE CHRISTIANSON MD Ot O62 .9 ABNORMALITY OF FORCES OF LABOR, UNSPECIF 04/27/2019 MAGGIE CHRISTIANSON MD Ot Z3A.38 38 WEEKS GESTATION OF 04/29/2019 ONOFRE SAN MD, Ot O80 ENCOUNTER FOR FULL-TERM UNCOMPLICATED DE 04/29/2019 ONOFRE SAN MD, Ot Z37 .0 SINGLE LIVE 04/29/2019 ONOFRE SAN MD, Ot Z3A.39 39 WEEKS GESTATION OF 05/05/2019 ONOFRE SAN MD, Ot R60 .0 LOCALIZED EDEMA 05/05/2019 SAN MD, ONOFRE M Ot R60 .0 LOCALIZED EDEMA Procedures Code Description Performed By Per lindsey On [id number] DC LIVERY OF PRODUCTS OF CONCEPTION, EXTE 04/27/2019 8A052ML IN TRODUCTION OF OTH HORMONE INTO PERIPH 04/27/2019 Results Test Result Range HEP B SURFACE ANTIGEN - 09/15/18 09:52 HEPATITIS B SURFACE ANTIGEN NON-REACTIVE NON-REACTIVE TSH - 09/15/18 09:52 TSH 0.52 mIU/L NRG CULTURE, URINE - 09/15/18 09:52 CULTURE, URINE, ROUTINE SEE NOTE NRG QNATAL - 09/15/18 09:52 NUMBER OF FETUSES? 1 NRG ADVANCED MATERNAL AGE? NO NRG ABNORMAL ÓSCAR? NO NRG ABNORMAL US? NO NRG PERSONAL/FAM HISTORY? NO NRG INTERPRETATION TNP NRG QNATAL - 10/13/18 09:59 NUMBER OF FETUSES? 1 NRG ADVANCED MATERNAL AGE? NO NRG ABNORMAL ÓSCAR? NO NRG ABNORMAL US? NO NRG PERSONAL/FAM HISTORY? NO NRG INTERPRETATION SEE NOTE NRG TRISOMY 21 (T21) Negative NRG TRISOMY 18 (T18) Negative NRG TRISOMY 13 (T13) Negative NRG Y CHROMOSOME Detected NRG Y CHR. INTERPRETATION SEE NOTE NRG SEX CHROMOSOME No aneuploidy NRG SEX CHROMOSOME INTERP SEE NOTE NRG MICRODELETION Not detected NRG MICRODELETION INTERP SEE NOTE NRG GESTATIONAL AGE(IN WEEKS) 11 NRG GESTATIONAL AGE (IN DAYS) 2 NRG FRACTION 13.31% NRG LABORATORY COMMENTS SEE NOTE NRG LIMITATIONS SEE NOTE NRG SPECIFICATIONS SEE NOTE NRG METHODOLOGY SEE NOTE NRG GC/CHLAMYDIA (SWAB OR URINE)-RAPID - 11:47 CHLAMYDIA TRACHOMATIS RNA, TMA NOT DETECTED NOT DETECTED NEISSERIA GONORRHOEAE RNA, TMA NOT DETECTED NOT DETECTED COMMENT NRG GLUCOSE JOEY 1 HOUR - 02/11/19 11:53 GLUCOSE, POSTPRANDIAL/ 1 HOUR 111 mg/dL See Note: CBC - 02/11/19 11:53 WHITE BLOOD CELL COUNT 11.0 Thousand/uL 3.8-10.8 RED BLOOD CELL COUNT 4.00 Million/uL 3.8 0-5.10 HEMOGLOBIN 11.9 g/dL 11.7-15.5 HEMATOCRIT 35.4 % 35.0-45.0 MCV 88.5 fL 80.0-100.0 MCH 29.8 pg 27.0-33.0 MCHC 33.6 g/dL 32.0-36.0 RDW 13.1 % 11.0-15.0 PLATELET COUNT 253 Thousand/uL 140-400 MPV 8.0 fL 7.5-12.5 ABSOLUTE NEUTROPHILS 8107 cells/uL 1500- 7800 ABSOLUTE LYMPHOCYTES 2068 cells/uL 850-3 900 ABSOLUTE MONOCYTES 627 cells/uL 200-950 ABSOLUTE EOSINOPHILS 154 cells/uL 15-500 ABSOLUTE BASOPHILS 44 cells/uL 0-200 NEUTROPHILS 73.7 % NRG LYMPHOCYTES 18.8 % NRG MONOCYTES 5.7 % NRG EOSINOPHILS 1.4 % NRG BASOPHILS 0.4 % NRG COMMENT(S) NRG ANTIBODY SCREEN - 02/11/19 11:53 ANTIBODY SCREEN, RBC W/REFL ID, TITER AND AG NO ANTIBODIES DETECTED NRG CULTURE, THROAT - 03/26/19 13:45 CULTURE, THROAT SEE NOTE NRG CULTURE, GROUP B STREP (VAGINAL) - 04/05 10:41 STREPTOCOCCUS, GROUP B CULTURE SEE NOTE NRG Complete urinalysis with reflex to cultu re - 04/10/19 21:50 Urine color determination YELLOW NRG Urine clarity determination CLOUDY NR G Urine pH measurement by test strip 5.5 5-9 Specific gravity of urine by test strip >= 1.016-1.022 Urine protein assay by test strip, semi-quantitative NEGATIVE NEGATIVE Urine glucose detection by automated test strip NE GATIVE NEGATIVE Erythrocytes detection in urine sediment by light micr oscopy TRACE-I NEGATIVE Urine ketones detection by automated test strip NE GATIVE NEGATIVE Urine nitrite detection by test strip NEGATIVE NEGATIVE Urine total bilirubin detection by test strip NEGA TIVE NEGATIVE Urine urobilinogen measurement by automated test strip (mass/volume) 1.0 mg/dL < = 1.0 Urine leukocyte esterase detection by dipstick NEG ATIVE NEGATIVE Automated urine sediment erythrocyte cou nt by microscopy (number/high power field) NONE NRG Automated urine sediment leukocyte count by microscopy (number/high power field) [HPF] NRG Bacteria detection in urine sediment by light microsco py MODERATE NRG Squamous epithelial cells detection in u rine sediment by light microscopy 10-25 NRG Crystals detection in urine sediment by light microsco py NONE NRG Casts detection in urine sediment by light microscopy NONE NRG Mucus detection in urine sediment by light microscopy SMALL NRG Complete urinalysis with reflex to culture YES NRG Bacterial urine culture - 04/10/19 21:50 Bacterial urine culture 3 OR MORE NRG COLONY COUNT >100,000/ML NRG FTX;REPORTABLE (GRAM POSITIVE) SUGGESTING PROBABLE NRG FREE TEXT ENTRY 2 COLLECTION CONTAMINATION WITH SK IN NRG FREE TEXT ENTRY 3 DEON. NO SUSCEPTIBILITY PERFOR MED NRG Complete blood count (CBC) with automate d white blood cell (WBC) differential - 04/26/19 18:30 Blood leukocytes automated count (number/volume) 18.7 10*3/uL 4.3-11.0 Blood erythrocytes automated count (number/volume) 4.02 10*6/uL 4.35-5.85 Venous blood hemoglobin measurement (mass/volume) 11.2 g/dL 11.5-16.0 Blood hematocrit (volume fraction) 34 % 35-52 Automated erythrocyte mean corpuscular volume 86 [ foz_us] 80-99 Automated erythrocyte mean corpuscular h emoglobin (mass per erythrocyte) 28 pg 25-34 Automated erythrocyte mean corpuscular h emoglobin concentration measurement (mass/volume) 33 g/dL 32-36 Automated erythrocyte distribution width ratio 13. 6 % 10.0- 14.5 Automated blood platelet count (count/volume) 262 10*3/uL 130-400 Automated blood platelet mean volume measurement 7.8 [foz_us] 7.4-10.4 Automated blood neutrophils/100 leukocytes 84 % 42-75 Automated blood lymphocytes/100 leukocytes 10 % 12-44 Blood monocytes/100 leukocytes 6 % 0-12 Automated blood eosinophils/100 leukocytes 1 % 0-10 Automated blood basophils/100 leukocytes 0 % 0-10 Blood neutrophils automated count (number/volume) 15.6 10*3 1.8-7.8 Blood lymphocytes automated count (number/volume) 1.9 10*3 1.0-4.0 Blood monocytes automated count (number/volume) 1. 1 10*3 0.0-1.0 Automated eosinophil count 0.1 10*3/uL 0 .0-0.3 Automated blood basophil count (count/volume) 0.0 10*3/uL 0.0-0.1 Manual absolute plasma cell count - 1207/14 18:30 Blood monocytes/100 leukocytes 7 % NRG Manual blood segmented neutrophils/100 leukocytes 82 % NRG Blood band neutrophils/100 leukocytes 3 % NRG Manual blood lymphocytes/100 leukocytes 8 % NRG Blood erythrocyte morphology finding identification N NRG Blood type T Indirect antibody screen pa elfego - 04/26/19 18:30 WRISTBAND NUMBER [id number] NRG ABO+Rh group ON NRG Blood group antibody screen NEGATIVE NR G Complete blood count (CBC) with automate d white blood cell (WBC) differential - 04/28/19 06:48 Blood leukocytes automated count (number/volume) 19.7 10*3/uL 4.3-11.0 Blood erythrocytes automated count (number/volume) 3.18 10*6/uL 4.35-5.85 Venous blood hemoglobin measurement (mass/volume) 9.0 g/dL 11.5-16.0 Blood hematocrit (volume fraction) 28 % 35-52 Automated erythrocyte mean corpuscular volume 87 [ foz_us] 80-99 Automated erythrocyte mean corpuscular h emoglobin (mass per erythrocyte) 28 pg 25-34 Automated erythrocyte mean corpuscular h emoglobin concentration measurement (mass/volume) 33 g/dL 32-36 Automated erythrocyte distribution width ratio 13. 7 % 10.0- 14.5 Automated blood platelet count (count/volume) 229 10*3/uL 130-400 Automated blood platelet mean volume measurement 7.8 [foz_us] 7.4-10.4 Automated blood neutrophils/100 leukocytes 81 % 42-75 Automated blood lymphocytes/100 leukocytes 11 % 12-44 Blood monocytes/100 leukocytes 7 % 0-12 Automated blood eosinophils/100 leukocytes 1 % 0-10 Automated blood basophils/100 leukocytes 0 % 0-10 Blood neutrophils automated count (number/volume) 15.9 10*3 1.8-7.8 Blood lymphocytes automated count (number/volume) 2.2 10*3 1.0-4.0 Blood monocytes automated count (number/volume) 1. 4 10*3 0.0-1.0 Automated eosinophil count 0.2 10*3/uL 0 .0-0.3 Automated blood basophil count (count/volume) 0.0 10*3/uL 0.0-0.1 Comprehensive metabolic panel - 05/03/19 12:39 Serum or plasma sodium measurement (moles/volume) 137 mmol/L 135-145 Serum or plasma potassium measurement (moles/volume) 4.3 mmol/L 3.6-5.0 Serum or plasma chloride measurement (moles/volume) 101 mmol/L 98-107 Carbon dioxide 24 mmol/L 21-32 Serum or plasma anion gap determination (moles/volume) 12 mmol/L 5-14 Serum or plasma urea nitrogen measurement (mass/volume ) 10 mg/dL 7-18 Serum or plasma creatinine measurement (mass/volume) 0.57 mg/dL 0.60-1.30 Serum or plasma urea nitrogen/creatinine mass ratio 18 NRG Serum or plasma creatinine measurement w ith calculation of estimated glomerular filtration rate > NRG Serum or plasma glucose measurement (mass/volume) 86 mg/dL 70-105 Serum or plasma calcium measurement (mass/volume) 9.0 mg/dL 8.5-10.1 Serum or plasma total bilirubin measurement (mass/volu me) 0.2 mg/dL 0.1-1.0 Serum or plasma alkaline phosphatase anuj surement (enzymatic activity/volume) 116 U/L 40-136 Serum or plasma aspartate aminotransfera se measurement (enzymatic activity/volume) 28 U/L 5-34 Serum or plasma alanine aminotransferase measurement (enzymatic activity/volume) 20 U/L 0-55 Serum or plasma protein measurement (mass/volume) 7.6 g/dL 6.4-8.2 Serum or plasma albumin measurement (mass/volume) 3.7 g/dL 3.2-4.5 CALCIUM CORRECTED 9.2 mg/dL 8.5-10.1 Complete blood count (CBC) with automate d white blood cell (WBC) differential - 05/03/19 12:39 Blood leukocytes automated count (number/volume) 16.4 10*3/uL 4.3-11.0 Blood erythrocytes automated count (number/volume) 3.89 10*6/uL 4.35-5.85 Venous blood hemoglobin measurement (mass/volume) 10.9 g/dL 11.5-16.0 Blood hematocrit (volume fraction) 34 % 35-52 Automated erythrocyte mean corpuscular volume 87 [ foz_us] 80-99 Automated erythrocyte mean corpuscular h emoglobin (mass per erythrocyte) 28 pg 25-34 Automated erythrocyte mean corpuscular h emoglobin concentration measurement (mass/volume) 32 g/dL 32-36 Automated erythrocyte distribution width ratio 13. 5 % 10.0- 14.5 Automated blood platelet count (count/volume) 474 10*3/uL 130-400 Automated blood platelet mean volume measurement 7.0 [foz_us] 7.4-10.4 Automated blood neutrophils/100 leukocytes 78 % 42-75 Automated blood lymphocytes/100 leukocytes 12 % 12-44 Blood monocytes/100 leukocytes 5 % 0-12 Automated blood eosinophils/100 leukocytes 3 % 0-10 Automated blood basophils/100 leukocytes 0 % 0-10 Blood neutrophils automated count (number/volume) 12.8 10*3 1.8-7.8 Blood lymphocytes automated count (number/volume) 2.0 10*3 1.0-4.0 Blood monocytes automated count (number/volume) 0. 8 10*3 0.0-1.0 Automated eosinophil count 0.4 10*3/uL 0 .0-0.3 Automated blood basophil count (count/volume) 0.1 10*3/uL 0.0-0.1 Manual absolute plasma cell count - 12/0 02/11 12:39 Blood monocytes/100 leukocytes 5 % NRG Manual blood segmented neutrophils/100 leukocytes 71 % NRG Blood band neutrophils/100 leukocytes 9 % NRG Manual blood lymphocytes/100 leukocytes 11 % NRG Manual eosinophils/100 leukocytes in nose 1 % NRG Manual blood basophils/100 leukocytes 0 % NRG Blood polychromasia detection by light microscopy SLIGHT NRG Manual blood metamyelocytes/100 leukocytes 3 % NRG Encounters ACCT No. Visit Date/Time Discharge Status Pt. Type Provider Facility Loc./Unit Complaint [id number] 04/19/2019 11:00:00 04/19/2019 23:59: 59 CLS Outpatient [facility] [id number] 04/05/2019 10:40:00 Document Registration [id number] 03/26/2019 13:20:00 Document Registration [id number] 02/11/2019 11:00:00 Document Registration [id number] 10/13/2018 08:45:00 Document Registration [id number] 09/15/2018 08:45:00 Document Registration [id number] 05/03/2019 12:26:00 23:59:59 CLS Outpatient ONOFRE SAN MD [facility] LAB FS CMP CBC [id number] 04/26/2019 17:37:00 16:19:00 DIS Inpatient JASWINDER MURILLO, ONOFRE Barkley [facility] LDRP INDUCTION [id number] 04/25/2019 20:39:00 22:10:00 DIS Outpatient MEGHAN MURILLO, MAGGIE Peoples [facility] WSo CONTRACTIONS [id number] 04/10/2019 21:42:00 23:21:00 DIS Outpatient LIZ MURILLO, MEME Prabhakar [facility] WSo CONTRACTIONS [id number] 01/27/2019 18:25:00 20:24:00 DIS Emergency VERNA MURILLO, ESTHER Ac [facility] ER FS RT HAND ANIMAL BITE [id number] 01/14/2019 15:33:00 23:59:59 CLS Outpatient JASWINDER MURILLO, ONOFRE Barkley [facility] RAD BRAIN HEMANGIOMA,WORSEN ING HEADACHE,20 WEEKS PREG [id number] 12/30/2018 18:25:00 19:35:00 DIS Outpatient ALEXANDER [facility]URILLO, DEVYN [facility]ley [facility]
== END 2019-04-29 16:19 | disposition home or self-care (01) | DRG 807 ==
LOC: LDRP 17:37
PROVIDERS: ADMIT Family Medicine; ATTEND Family Medicine
PROC: 10E0XZZ Delivery of Products of Conception, External Approach (ICD-10-PCS; principal; 2019-04-27)
PROC: 3E033VJ Introduction of Other Hormone into Peripheral Vein, Percutaneous Approach (ICD-10-PCS; 2019-04-27)
DX: O80 Encounter for full-term uncomplicated delivery (principal); Z37.0 Single live birth; Z3A.39 39 weeks gestation of pregnancy
CPT/HCPCS: 36415; 85007; 85025; 85027; 86850; 86900; 86901

== ENCOUNTER → 2019-05-03 | Outpatient (CLI) | payer OTHER, MEDICAID ==
[2019-05-03 13:08] LABS: BILIRUBIN,TOTAL 0.2 MG/DL (0.1-1.0); BUN/CREATININE RATIO 18; CARBON DIOXIDE 24 MMOL/L (21-32); CHLORIDE 101 MMOL/L (98-107); CREATININE SERUM 0.57 MG/DL (0.60-1.30); GFR ESTIMATED > 60; GLUCOSE 86 MG/DL (70-105); POTASSIUM 4.3 MMOL/L (3.6-5.0); SODIUM 137 MMOL/L (135-145)
[2019-05-03 13:09] LABS: ALANINE AMINOTRANSFERASE 20 U/L (0-55); ALBUMIN 3.7 GM/DL (3.2-4.5); ALKALINE PHOSPHATASE 116 U/L (40-136); HEMATOCRIT 34 % (35-52); HEMOGLOBIN 10.9 G/DL (11.5-16.0); MEAN CORPUSCULAR HEMOGLOBIN 28 PG (25-34); MEAN CORPUSCULAR HGB CONC 32 G/DL (32-36); MEAN CORPUSCULAR VOLUME 87 FL (80-99); PLATELET COUNT 474 10^3/uL (130-400); RED CELL DISTRIBUTION WIDTH 13.5 % (10.0-14.5); TOTAL PROTEIN 7.6 GM/DL (6.4-8.2); WHITE BLOOD COUNT 16.4 10^3/uL (4.3-11.0)
[2019-05-03 13:10] LABS: BASOPHILS # (AUTO) 0.1 10^3/uL (0.0-0.1); BASOPHILS % (AUTO) 0 % (0-10); EOSINOPHILS # (AUTO) 0.4 10^3/uL (0.0-0.3); EOSINOPHILS % (AUTO) 3 % (0-10); LYMPHOCYTES % (AUTO) 12 % (12-44); MONOCYTES # (AUTO) 0.8 X 10^3 (0.0-1.0); MONOCYTES % (AUTO) 5 % (0-12); NEUTROPHILS # (AUTO) 12.8 X 10^3 (1.8-7.8); NEUTROPHILS % (AUTO) 78 % (42-75)
[2019-05-03 13:24] LABS: BAND NEUTROPHILS 9 %; BASOPHILS % (MANUAL) 0 %; EOSINOPHILS % (MANUAL) 1 %; LYMPHOCYTES % (MANUAL) 11 %; METAMYELOCYTES % 3 %; MONOCYTES % (MANUAL) 5 %; NEUTROPHILS % (MANUAL) 71 %; POLYCHROMASIA SLIGHT
== END ==
LOC: LAB FS 12:26
PROVIDERS: ATTEND Family Medicine
DX: R60.0 Localized edema (principal)
CPT/HCPCS: 36415; 80053; 85007; 85027

== ENCOUNTER → 2020-05-15 | Outpatient (CLI) | payer MEDICAID, OTHER | LOC: LAB FS 12:47 | PROVIDERS: ATTEND Family Medicine | DX: N92.5 Other specified irregular menstruation (principal) | CPT/HCPCS: 36415; 84702 ==

== ENCOUNTER → 2020-06-12 | Outpatient (CLI) | payer MEDICAID ==
[2020-06-12 12:38] LABS: MEAN PLATELET VOLUME 8.2 FL (7.4-10.4)
[2020-06-12 20:48] LABS: HEPATITIS C ANTIBODY C Non-Reactive (Non-Reactive)
== END ==
LOC: LAB FS 11:50
PROVIDERS: ATTEND Family Medicine
DX: Z34.91 Encounter for supervision of normal pregnancy, unspecified, first trimester (principal); Z3A.00 Weeks of gestation of pregnancy not specified
CPT/HCPCS: 36415; 85027; 86703; 86762; 86803; 86850; 86900; 86901; 87088